=== PATIENT | female | born 1940 | race Hispanic/Latino ===

== ENCOUNTER 2019-03-09 07:33 | Day surgery (SDC) | payer MEDICARE ==
--- NOTE | 2019-03-09 07:48 | Anesthesia Day of Surgery ---
Anesthesia Day of Surgery - Day of Surgery Patient Examined: Yes Patient H&P Reviewed: Yes Patient is NPO: Yes
[2019-03-09] MEDS ORDERED: ONDANSETRON 4 MG/2 ML INJ IV PRN (07:51)
[2019-03-09] MEDS ORDERED: fentaNYL 100 MCG/2 ML INJ IV PRN (07:51)
--- NOTE | 2019-03-09 07:51 | Anesthesia Consultation ---
Anesthesia Consult and Med Hx Date of service: 03/09/19 - Airway Anesthetic Teeth Evaluation: Edentulous ROM Head & Neck: Adequate Mental/Hyoid Distance: Adequate Mallampati Class: Class III Intubation Access Assessment: Probably Good - Pre-Operative Health Status ASA Pre-Surgery Classification: ASA2 Proposed Anesthetic Plan: General - Pulmonary Hx Smoking: Yes (STOPPED 1997) Hx Sleep Apnea: No (ALEXIS PRE SCREEN LOW RISK.) - Cardiovascular System Hx Hypertension: Yes (X 10 YRS ) - Central Nervous System Hx Neuromuscular Disorder: Yes (Polyneuropathy-hereditary) - Endocrine Hx Thyroid Disease: Yes Hx Hypothyroidism: Yes (ON DAILY MEDS) - Other Systems Hx Cancer: No
[2019-03-09] MEDS ORDERED: LACTATED RINGERS 1,000 ML IV SCH (08:00)
[2019-03-09] MEDS ORDERED: ceFAZolin/Water 2 GM/20 ML 2 GM/20 ML SYRINGE IV NR (09:00)
[2019-03-09] MEDS ORDERED: fentaNYL 100 MCG/2 ML INJ ONE (10:08)
[2019-03-09] MEDS ORDERED: LIDOCAINE MPF (2%) 20 MG/1 ML VIAL 5 ML ONE ×2 (10:09→10:56)
[2019-03-09] MEDS ORDERED: PROPOFOL 200 MG/20 ML VIAL IV ONE (10:09)
[2019-03-09] MEDS ORDERED: IOHEXOL 300 MG/ML 50ML IV ONE (10:55)
[2019-03-09] MEDS ORDERED: WATER FOR IRRIG STERILE 2000 ML IR ONE (10:55)
[2019-03-09] MEDS ORDERED: dexAMETHasone 20 MG/5 ML VIAL ONE (10:56)
[2019-03-09] MEDS ORDERED: ONDANSETRON 4 MG/2 ML INJ ONE (10:56)
--- NOTE | 2019-03-09 11:26 | Post Operative Note ---
Date of procedure: 03/09/19 Pre-op diagnosis: hematuria Post-op diagnosis: same Findings: min erythema Procedure: cysto rpg biopsy Anesthesia: GETA Surgeon: RENU ELAM Estimated blood loss: minimal Pathology: list (bladder) Specimen disposition: to lab Condition: stable Disposition: PACU
--- NOTE | 2019-03-09 11:28 | Discharge Summary ---
Short Stay Discharge Plan Activity: other (inc fluids ) Weight Bearing Status: Full Weight Bearing Diet: low fat, low cholesterol, low salt Special Instructions: other (inc fluids ) Follow up with: ROSELYN ALFONSO MD [Primary Care Provider] - 7 Days RENU ELAM MD [Staff Physician] - 7 Days
[2019-03-09] MEDS ORDERED: PHENYLEPHRINE/NS 1,000 MCG/10 ML SYRINGE (OR USE) IV ONE (11:34)
--- NOTE | 2019-03-09 11:43 | Fluoroscopy Report ---
INTRAOPERATIVE FLUOROSCOPY: INDICATION / CLINICAL INFORMATION: HEMATURIA AND INCONTINENCE. TECHNIQUE: Intraoperative spot images were obtained during the procedure. FINDINGS: Intraoperative spot images show injection of contrast into both right and left collecting systems. No persistent filling defect is seen in either collecting system on the images obtained. Fluoroscopy Time: 42 seconds. Fluoroscopy Images: 5. Signer Name: Yehuda Santoyo MD Signed: 03/09/2019 11:38 AM Workstation Name: [id number]
--- NOTE | 2019-03-09 11:46 | Operative Report ---
PREOPERATIVE DIAGNOSES: Hematuria, possible bladder lesion. POSTOPERATIVE DIAGNOSES: Hematuria, possible bladder lesion. PROCEDURE: Cystoscopy, retrograde biopsy, fulguration. SURGEON: Dr. Vick. ANESTHESIA: General. FINDINGS: This is a woman who presents for cystoscopic evaluation of hematuria and all risks and implications discussed. DESCRIPTION OF PROCEDURE: The patient was brought to the operating room and placed on the operating table. Following induction of anesthesia, she was placed in lithotomy position, prepped and draped in usual sterile fashion. Cystourethroscopy showed slight erythema posterior wall. This was biopsied and fulgurated. Retrograde showed delicate collecting system in ureters with a small cystocele. It should be noted that upon entering the bladder neck, it looked like almost there was another orifice at the bladder neck. This looked like there was a little bridge or a little band in the bladder. There was no active bleeding. The patient tolerated the procedure well. No other lesions. No treatment was needed. The patient tolerated the procedure well and brought to recovery in stable condition. JOB# [id number] NUNO/LANDEN
[2019-03-09 13:59] VITALS: BP 146/72
--- NOTE | 2019-03-09 22:44 | Post Anesthesia Evaluation ---
- Post Anesthesia Evaluation Patient Participated: Yes Airway Patent: Yes Stable Respiratory Function: Yes Nausea/Vomiting: No Temp > 96.8F: Yes Pain Manageable: Yes Adequeate Hydration: Yes Anesthesia Complications: No Block Receding Appropriately: Not Applicable Patient on Ventilator: No
== END 2019-03-09 07:34 | disposition home or self-care (01) ==
LOC: OR 07:33
PROVIDERS: ATTEND Urology
DX: N30.91 Cystitis, unspecified with hematuria (principal); G62.9 Polyneuropathy, unspecified; E78.00 Pure hypercholesterolemia, unspecified; I10 Essential (primary) hypertension; M19.90 Unspecified osteoarthritis, unspecified site; E03.9 Hypothyroidism, unspecified; Z98.890 Other specified postprocedural states; Z87.440 Personal history of urinary (tract) infections; Z88.8 Allergy status to other drugs, medicaments and biological substances; Z88.5 Allergy status to narcotic agent; Z79.82 Long term (current) use of aspirin; Z79.899 Other long term (current) drug therapy; Z87.891 Personal history of nicotine dependence; Z98.49 Cataract extraction status, unspecified eye
CPT/HCPCS: 52204; 74420; 88305; A4217; C1758; J0690; J1100; J2370; J2405; J2704; J3010; J7120; Q9967

== ENCOUNTER 2021-10-01 18:10 | Inpatient (IN) | payer MEDICARE, MEDICAID ==
--- NOTE | 2021-10-01 18:39 | Consultation ---
History of Present Illness Consult date: 10/01/21 History of present illness: [facility] Consult Note # Demographics Consult Type: Acute Stroke Level 2 (4.5-24 hrs) Patient Location: Emergency Room First Name: Dorothy Last Name: Amber Date of : 1940 Age: 81 Gender: Female Facility: [facility] Time of Initial Page ( Time): 10/01/2021, 17:51 Time of Return Call ( Time): 10/01/2021, 17:57 # HPI Chief Complaint: dizziness numbness History: Patient woke up with right arm numbness & tingling. Last known well 1500 On home oxygen 2L Patient developed dizziness when looking over to the left. Last Known Normal: I have collected independent history specific to time last normal or last known well. We have collaborated with the provider and at this time, we have the most current timeline with the information that is available. 1500 Duration: constant hours Possible Thrombolytic candidate: not on warfarin or NOACs Associated Symptoms: dizziness no headache Quality: numbness pins and needles # Scores Time of exam and NIHSS ( Time): 10/01/2021, 18:18 Level of Consciousness 1a: [0] = Alert; keenly responsive LOC Questions 1b: [0] = Answers both questions correctly LOC Commands 1c: [0] = Performs both tasks correctly Best Gaze 2: [0] = Normal Visual 3: [0] = No visual loss Facial Palsy 4: [0] = Normal symmetrical movements Motor Arm Left 5a: [0] = No drift Motor Arm Right 5b: [0] = No drift Motor Leg Left 6a: [0] = No drift Motor Leg Right 6b: [0] = No drift Limb Ataxia 7: [1] = Present in one limb Sensory 8: [1] = Bqvy-qv-vafxjyun sensory loss Best Language 9: [0] = No aphasia Dysarthria 10: [0] = Normal Extinction and Inattention 11: [0] = No abnormality NIHSS Total: 2 Modified Woods Scale (mRS) pre-stroke: [0] = No Symptoms Modified Woods Scale total: 0 VAN Screening: Negative # Exam SBP: 128 DBP: 80 Mental Status: awake alert and oriented x 3 follows commands Language: normal speech Sensory: Right hand tingling Cerebellar: right finger nose ataxia # ROS Pulmonary: shortness of breath Cardiovascular: no chest pain # PMH-FH-SH Past Medical History: hyperlipidemia hypertension Medications: antihypertensive aspirin lipid lowering agent Allergies: Codeine, hydrocodone # Data Glucose: Pending Time Head CT personally read by me (Eastern Time): 10/01/2021, 18:[address]: no bleed preliminarily reviewed by me, please refer to radiology read for official reading # Assessment Impression: Numbness, dysmetria, ataxia, dizziness - concern for posterior circulation infarct # Plan Thrombolytic/Intervention: Possible IA candidate Thrombolytic Exclusion (< 3 hour window): family/ patient refusal Thrombolytic Exclusion (3-4.5 hour window): refusal Thrombolytic Exclusion: After discussing the risks & benefits, the patient elected not to pursue thrombolytic therapy. Possible IA Candidate: CTA pending Target Blood Pressure: SBP < 220 Labs: CBC comprehensive metabolic panel ESR hemoglobin A1c lipid panel troponin TSH urine drug screen ua Imaging: (urgency: STAT): CT Head without contrast CT Angiogram Head and CT Angiogram Neck AND call back with results if abnormal Imaging: (urgency: routine): MRI Brain without contrast Diagnostic Test: echo without bubble study Therapy/Evaluation: NPO until swallow evaluation PT/OT evaluation Medication: aspirin 81 mg PLUS clopidogrel (Plavix) 75 mg for 21 days, then monotherapy therafter start statin with goal of LDL < 70 Dual antiplatelet therapy given low NIHSS & concern for stroke, unless there is a large area of infarction in the posterior fossa/ cerebellum on MRI (i.e., increased risk for hemorrhagic transformation), then consider transitioning to clopidogrel (please call if there are any concerns about this on the MRI study) DVT Prophylaxis: SCD chemical DVT prophylaxis Other: permissive hypertension telemetry monitoring I have discussed my recommendations with the referring provider Additional Recommendations: Please be aware that changes in level of arousal, new-onset/ worsening headache, or new/ worsening focal neurological deficits warrant urgent repeat head CT for patients with potential posterior fossa pathology (ischemic stroke, hemorrhage, or mass). Disposition: admit # Logistics Telemedicine: Interactive 2 way audio and visual telecommunication technology was utilized during this visit Medications and Allergies Allergies Allergy/AdvReac Type Severity Reaction Status Date / Time codeine Allergy Nausea Verified 10/01/21 18:33 hydrocodone Allergy Nausea Verified 10/01/21 18:33 Home Medications Medication Instructions Recorded Confirmed Last Taken Type Alendronate Sodium 40 mg PO QWEEK 03/02/19 03/16/19 03/09/19 05:30 History Aspirin [Adult Aspirin] 81 mg PO DAILY 03/02/19 03/16/19 02/23/19 History AtorvaSTATin [Lipitor] 40 mg PO QHS 03/02/19 03/16/19 03/09/19 05:30 History Cholecalciferol (Vitamin D3) 2,000 unit PO QDAY 03/02/19 03/16/19 03/09/19 05:30 History [Vitamin D3 2,000 UNIT CAP] Glucosa [place] 2Kcl/Chondroitin Elmore 1 each PO DAILY 03/02/19 03/16/19 03/09/19 05:30 History [Glucosamine-Chondroitin Cap] Levothyroxine [Synthroid] 25 mcg PO QAM 03/02/19 03/16/19 03/09/19 05:30 History [place]-3/Dha/Epa/Fish Oil [Fish Oil 1 each PO DAILY 03/02/19 03/16/19 03/09/19 05:30 History 1,200 mg Softgel] Vitamin E Acetate [Vitamin E] 1,000 unit PO DAILY 03/02/19 03/16/19 03/09/19 05:30 History lisinopriL [Zestril TAB] 40 mg PO QDAY 03/02/19 03/16/19 03/09/19 05:30 History Benzonatate [Tessalon Perles] 100 mg PO Q8HR PRN #30 capsule 03/20/19 Unknown Rx Loratadine/Pseudoephedrine 1 each PO Q24HR #10 tablet 03/20/19 Unknown Rx [Claritin-D 24HR] levoFLOXacin [Levaquin TAB] 500 mg PO QDAY #5 tablet 03/20/19 Unknown Rx
--- NOTE | 2021-10-01 18:52 | Cat Scan Report ---
CT head/brain wo con INDICATION: r/o stroke; RUE tingling, weakness. TECHNIQUE: Routine CT head. All CT scans at this location are performed using CT dose reduction for A PAYTON by means of automated exposure control. COMPARISON: None. FINDINGS: Intracranial: Stover-white matter differentiation is maintained. No intracranial hemorrhage. No extra a xial collection. No hydrocephalus. No herniation. Remote lacunar infarctions versus mildly prominent perivascular spaces in the basal ganglia. Sinuses: Paranasal sinuses and mastoid air cells are essentially clear. Orbits: Globes are intact. Calvarium: No acute fracture. IMPRESSION: 1. No acute intracranial abnormality. Signer Name: Nasir Carr MD Signed: 10/01/2021 6:47 PM Workstation Name: [id number]
--- NOTE | 2021-10-01 18:53 | Cat Scan Report ---
CT angio neck HISTORY: RUE tingling/weakness, last known normal 3pm est COMPARISON: None. TECHNIQUE: Routine CTA of the neck is performed. 3-D/MIP reformats were postprocessed. Percentage st enosis is determined by direct quantitative measurements of diseased internal carotid artery diameter compared with normal distal internal carotid artery reference segments or by criteria similar to GAYATRI CET where applicable. All CT scans at this location are performed using CT dose reduction for ALARA b y means of automated exposure control. FINDINGS: Aortic arch: No significant abnormality. Cervical vertebral arteries: No occlusion or hemodynamically significant stenosis. Common Carotid arteries: Mild atherosclerosis in the carotid bulbs. No occlusion or hemodynamically s ignificant stenosis. Internal carotid arteries: Mild atherosclerotic stenosis in the proximal internal carotid arteries. N o occlusion or hemodynamically significant stenosis. Additional findings: Severe emphysematous changes seen in the lung apices.. IMPRESSION: 1. No occlusion or significant stenosis. 2. Emphysema. Signer Name: Nasir Carr MD Signed: 10/01/2021 6:49 PM Workstation Name: [id number]
--- NOTE | 2021-10-01 18:56 | Cat Scan Report ---
CT angio head HISTORY: RUE tingling/weakness, last known normal 3pm est COMPARISON: None. TECHNIQUE: CTA of the head is performed after IV contrast. 3-D/MIP reformats were postprocessed. Per centage stenosis is determined by direct quantitative measurements of diseased internal carotid arter y diameter compared with normal distal internal carotid artery reference segments or by criteria agnes lar to NASCET where applicable. All CT scans at this location are performed using CT dose reduction f or ALARA by means of automated exposure control. FINDINGS: CTA HEAD: Intracranial internal carotid arteries: No occlusion or significant stenosis. Anterior cerebral arteries: No occlusion or significant stenosis. Middle cerebral arteries: No occlusion or significant stenosis. Intracranial vertebral arteries: Moderate sclerosis of the V4 segments the vertebral arteries. No occ lusion or significant stenosis. Basilar artery: No occlusion or significant stenosis. Posterior cerebral arteries: No occlusion or significant stenosis. Right P-comm infundibulum. No aneurysm. Additional findings: None. IMPRESSION: 1. CTA HEAD: No occlusion or significant stenosis of the major intracranial vasculature. Signer Name: Nasir Carr MD Signed: 10/01/2021 6:51 PM Workstation Name: [id number]
--- NOTE | 2021-10-01 19:10 | Emergency Department Report ---
HPI - General Chief Complaint: Neuro Symptoms/Deficit PUI?: No Time Seen by Provider: 10/01/21 18:12 - HPI HPI: 81-year-old female brought in by EMS for stroke notification. Last known normal time was 3 PM. Patient states she went to sleep @ 3pm and when she woke up she felt tingling and numbness in her right arm. Patient states that she broke her elbow 2 years ago and since then she has been having intermittent issues where the elbow pops and she has problems with reaching for things. Patient reports that when she woke up her fingers were tingling but she did not fall asleep on her arm. She denies any difficulty with motor strength. She denies any headaches dizziness nausea or vomiting vision loss visual changes or weakness in her arm or legs. No prior history of similar symptoms. Pain 0/10. Pt also c/o mild cough x several days. She denies any difficulty breathing or worsening shortness of breath,when compared to her baseline. ED Past Medical Hx - Past Medical History Hx Hypertension: Yes (X 10 YRS ) Hx Arthritis: Yes Hx COPD: Yes Hx HIV: No - Surgical History Additional Surgical History: leg surgery - Social History Smoking Status: Former Smoker - Medications Home Medications: Home Medications Medication Instructions Recorded Confirmed Last Taken Type Alendronate Sodium 40 mg PO QWEEK 03/02/19 03/16/19 03/09/19 05:30 History Aspirin [Adult Aspirin] 81 mg PO DAILY 03/02/19 03/16/19 02/23/19 History AtorvaSTATin [Lipitor] 40 mg PO QHS 03/02/19 03/16/19 03/09/19 05:30 History Cholecalciferol (Vitamin D3) 2,000 unit PO QDAY 03/02/19 03/16/19 03/09/19 05:30 History [Vitamin D3 2,000 UNIT CAP] Glucosa Elmore 2Kcl/Chondroitin Elmore 1 each PO DAILY 03/02/19 03/16/19 03/09/19 05:30 History [Glucosamine-Chondroitin Cap] Levothyroxine [Synthroid] 25 mcg PO QAM 03/02/19 03/16/19 03/09/19 05:30 History [place]-3/Dha/Epa/Fish Oil [Fish Oil 1 each PO DAILY 03/02/19 03/16/19 03/09/19 05:30 History 1,200 mg Softgel] Vitamin E Acetate [Vitamin E] 1,000 unit PO DAILY 03/02/19 03/16/19 03/09/19 05:30 History lisinopriL [Zestril TAB] 40 mg PO QDAY 03/02/19 03/16/19 03/09/19 05:30 History Benzonatate [Tessalon Perles] 100 mg PO Q8HR PRN #30 capsule 03/20/19 Unknown Rx Loratadine/Pseudoephedrine 1 each PO Q24HR #10 tablet 03/20/19 Unknown Rx [Claritin-D 24HR] levoFLOXacin [Levaquin TAB] 500 mg PO QDAY #5 tablet 03/20/19 Unknown Rx ED Review of Systems ROS: Stated complaint: RIGHT ARM WEAKNESS Other details as noted in HPI Comment: All other systems reviewed and negative Constitutional: no symptoms reported. denies: see HPI, chills, diaphoresis, fever, malaise, weakness Eyes: denies: eye pain, eye discharge, vision change ENT: denies: ear pain, throat pain, dental pain, hearing loss, epistaxis Respiratory: see HPI, cough, shortness of breath Cardiovascular: denies: chest pain, palpitations, dyspnea on exertion, orthopnea, edema, syncope, paroxysmal nocturnal dyspnea Gastrointestinal: denies: abdominal pain, nausea, vomiting, diarrhea, constipation, hematemesis, melena Genitourinary: as per HPI. denies: urgency, dysuria, frequency, hematuria, discharge, abnormal menses, dyspareunia, other Musculoskeletal: denies: back pain, joint swelling, arthralgia, myalgia Skin: denies: rash, lesions, change in color, change in hair/nails, pruritus Neurological: numbness, paresthesias, other (dizziness). denies: headache, w eakness, confusion, abnormal gait, vertigo Psychiatric: denies: anxiety, depression, auditory hallucinations, visual hallucinations, homicidal thoughts Hematological/Lymphatic: denies: easy bleeding, easy bruising, swollen glands Physical Exam - Physical Exam General: Gen: pt is well appearing, mildly dyspneic, currently wearing supplemental oxygen via nasal cannula, no drooling no stridor HEENT: Normocephalic atraumatic pupils equally round and reactive to light extraocular muscles intact sclera anicteric Neck: Full range of motion, no midline spinal tenderness palpation, no JVD, no carotid bruits, no nuchal rigidity CVS: S1-S2 regular rate and rhythm with no gallops rubs or murmurs, chest wall nontender Pulmonary: Clear to auscultation bilaterally, no wheezes rales or rhonchi Abdomen: Soft nondistended nontender no guarding or rebound tenderness, no palpable deformities or step-offs, normal active bowel sounds, no hepatosplenomegaly, no pulsatile masses : Deferred Extremities: No cyanosis no clubbing no edema, intact distal peripheral pulses, Integumentary: Skin normal, no petechia no purpura no abscess no lacerations no evidence of trauma no evidence of infection Neuro: Patient is awake alert and oriented to person place time situation, mentating well, cranial nerves II through XII intact, no focal neurodeficits, sensation grossly tact, decreased sensation to right upper extremity, NIH score is 1 Psych: Calm cooperative, mood affect normal ED Course - Reevaluation(s) Reevaluation #2: 10/01/21 19:10 6:30 PM: Call received from stroke telemetry neurologist, Dr. Gordon. Per his verbal report he had spoken to the patient in the CT scanner and expressed concern about possible posterior circulation stroke, with NIH score of 2. He states he advised the patient to receive tPA but the patient refused., citing her concer of developing an intracranial hemorrrhage as a result of receiving tpa. He is advising admission to the hospital service, but to provide the patient with aspirin, and that the patient undergo an MRI of her brain tomorrow. Reevaluation #3: 10/01/21 18:57: Patient has just returned from CAT scan. She is awake alert and oriented to person place and time situation and is mentating well. She has decision-making capacity per my clinical assessment. NIH score is 1. I had an extensive discussion with the patient and her daughter at her bedside concerning the patient's discussion with Dr. Butts. The patient affirms that she understands the risk of receiving tPA and at this time is declining to receive it. I again encouraged the patient to receive tPA as recommended by the stroke neurologist and again reviewed with her the risk and benefits. However patient states "I do not want to have any risk of a possible brain bleed." All questions answered by me at the patient's bedside patient repeatedly declines to be given tPA and therefore this will not be administered. 19:10 Patient is comfortable and well-appearing. Denies any worsening symptoms. NIH score remains 1 per my assessment. We will continue to monitor 10/01/21 19:22 Reevaluation #4: 10/01/21 19:34: Informed by pt and her daughter that the pt now states she wants TPA. I emergently asked the crude unit operator, Jennifer, to telephone Dr. Butts so that this can be discussed and to determine if the patient is still eligible to receive tPA Reevaluation #5: 10/01/21 19:47: Dr. Butts return call received. I informed him that several minutes ago, the patient states she would like to receive tPA. However expressed concern that the patient now was out of the window for tPA and I am requesting that he speak with the patient and her daughter concerning her current and eligibility to receive this. He subsequently agreed and verbally informed the patient and her daughter that the patient is out of the therapeutic window for receiving tPA therefore it is not recommended to be given at this time. Patient and daughter verbalized understanding of this. ED Medical Decision Making - Lab Data Result diagrams: 10/01/21 19:02 10/01/21 19:02 - EKG Data -: EKG Interpreted by Me EKG shows normal: sinus rhythm Rate: normal - EKG Data When compared to previous EKG there are: other (Poor baseline EKG, repeat EKG needed) 10/01/21 20:24 Repeat EKG ordered and pending at the time of this dictation as original EKG cannot be interpreted by me secondary to extremely poor baseline artifact - Radiology Data Radiology results: report reviewed Critical Care Time: No Critical care attestation.: If time is entered above; I have spent that time in minutes in the direct care of this critically ill patient, excluding procedure time. ED Disposition Clinical Impression: Paresthesias in right hand Disposition: ADMITTED INPATIENT Is pt being admited?: Yes Does the pt Need Aspirin: Yes Condition: Stable Referrals: VIRGINIA RYAN MD [Primary Care Provider] - 3-5 Days
[2021-10-01 19:13] LABS: Basophils % (Auto) 0.2 % (0.0-1.8); Eosinophils % (Auto) 0.4 % (0.0-4.3); Hematocrit 30.6 % (30.3-42.9); Hemoglobin 10.4 gm/dl (10.1-14.3); Lymphocytes # (Auto) 2.6 K/mm3 (1.2-5.4); Lymphocytes % (Auto) 50.6 % (13.4-35.0); Mean Corpuscular HGB Conc 34 % (30-34); Mean Corpuscular Volume 116 fl (79-97); Monocytes # (Auto) 0.2 K/mm3 (0.0-0.8); Monocytes % (Auto) 3.3 % (0.0-7.3); Platelet Count 161 K/mm3 (140-440); Red Blood Count 2.64 M/mm3 (3.65-5.03); Red Cell Distribution Width 15.3 % (13.2-15.2)
--- NOTE | 2021-10-01 19:22 | XRay Report ---
CHEST 1 VIEW 10/01/2021 6:41 PM INDICATION / CLINICAL INFORMATION: weakness. COMPARISON: 03/19/2019 FINDINGS: SUPPORT DEVICES: None. HEART / MEDIASTINUM: Unchanged LUNGS / PLEURA: There is focal parenchymal opacity in the right midlung zone adjacent to the hilum co uld represent focal atelectasis or pneumonia. No pneumothorax. ADDITIONAL FINDINGS: No significant additional findings. IMPRESSION: 1. Focal parenchymal opacity adjacent to the right hilum could represent atelectasis or evolving pneu monia. Short-term follow-up radiographs are recommended to ensure clearing. Signer Name: Yehuda Santoyo MD Signed: 10/01/2021 7:18 PM Workstation Name: [id number]
[2021-10-01 19:40] LABS: Alanine Aminotransferase 14 units/L (7-56); Albumin 4.3 g/dL (3.9-5); BUN/Creatinine Ratio 18; Blood Urea Nitrogen 21 mg/dL (7-17); Calcium 10.7 mg/dL (8.4-10.2); Hemolysis Index 22
[2021-10-01] MEDS ORDERED: CLOPIDOGREL 75 MG TAB PO ONE (20:08)
[2021-10-01] MEDS ORDERED: ASPIRIN 81 MG TAB CHEW PO ONE (20:13)
[2021-10-01] MEDS ORDERED: cefTRIAXone/NS 1 GM/50 ML 1 GM/50 ML BAG IV ONE (20:21)
[2021-10-01] MEDS ORDERED: AZITHROMYCIN/NS 500 MG/250 ML 500 MG/250 ML BAG IV ONE (20:22)
[2021-10-01] MEDS ORDERED: ALBUTEROL 2.5 MG/3 ML NEBU IH PRN (21:53)
[2021-10-01] MEDS ORDERED: MORPHINE 2 MG/1 ML INJ IV PRN (21:53)
[2021-10-01] MEDS ORDERED: MORPHINE 4 MG/1 ML INJ IV PRN (21:53)
[2021-10-01] MEDS ORDERED: ONDANSETRON 4 MG/2 ML INJ IV PRN (21:53)
[2021-10-01] MEDS ORDERED: ACETAMINOPHEN 325 MG TAB PO PRN (21:53)
[2021-10-01] MEDS ORDERED: BENZONATATE 100 MG CAP PO PRN (21:57)
[2021-10-01] MEDS ORDERED: FAMOTIDINE 20 MG/2 ML INJ IV SCH (22:00)
--- NOTE | 2021-10-01 22:04 | History and Physical Report ---
History of Present Illness Date of examination: 10/01/21 Date of admission: 10/01/21 Chief complaint: Tingling and numbness of the right arm History of present illness: 81-year-old female with history of hypertension, arthritis, COPD was brought to the hospital because of tingling numbness of the right arm since 3 PM. Patient states she went to sleep @ 3pm and when she woke up she felt tingling and numbness in her right arm. Patient states that she broke her elbow 2 years ago and since then she has been having intermittent issues where the elbow pops and she has problems with reaching for things. Patient reports that when she woke up her fingers were tingling but she did not fall asleep on her arm. She denies any difficulty with motor strength. She denies any headaches dizziness nausea or vomiting vision loss visual changes or weakness in her arm or legs. No prior history of similar symptoms. Pain 0/10. Pt also c/o mild cough x several days. She denies any difficulty breathing or worsening shortness of breath,when compared to her baseline. In the emergency room initial CT scan of the head shows no acute intracranial abnormality. Neck CTA and head CTA shows no occlusion or significant stenosis. But chest x-ray shows pneumonia Case discussed with stroke telemetry neurologist, Dr. Gordon. Per his verbal report he had spoken to the patient in the CT scanner and expressed concern about possible posterior circulation stroke, with NIH score of 2. He states he advised the patient to receive tPA but the patient refused., citing her concer of developing an intracranial hemorrrhage as a result of receiving tpa. He is advising admission to the hospital service, but to provide the patient with aspirin, and that the patient undergo an MRI of her brain tomorrow. 10/01/21 19:34: Informed by pt and her daughter that the pt now states she wants TPA. I emergently asked the community action worker, Jennifer, to telephone Dr. Butts so that this can be discussed and to determine if the patient is still eligible to receive tPA Reevaluation #5: 10/01/21 19:47: Dr. Butts return call received. I informed him that several minutes ago, the patient states she would like to receive tPA. However expressed concern that the patient now was out of the window for tPA and I am requesting that he speak with the patient and her daughter concerning her current and eligibility to receive this. He subsequently agreed and verbally informed the patient and her daughter that the patient is out of the therapeutic window for receiving tPA therefore it is not recommended to be given at this time. Patient and daughter verbalized understanding of this. Past History Past Medical History: arthritis, COPD, hypertension Past Surgical History: Other (Leg surgery) Social history: other (Former smoker) Family history: hypertension Medications and Allergies Allergies Allergy/AdvReac Type Severity Reaction Status Date / Time codeine Allergy Nausea Verified 10/01/21 18:33 hydrocodone Allergy Nausea Verified 10/01/21 18:33 Home Medications Medication Instructions Recorded Confirmed Last Taken Type Alendronate Sodium 40 mg PO QWEEK 03/02/19 03/16/19 03/09/19 05:30 History Aspirin [Adult Aspirin] 81 mg PO DAILY 03/02/19 03/16/19 02/23/19 History AtorvaSTATin [Lipitor] 40 mg PO QHS 03/02/19 03/16/19 03/09/19 05:30 History Cholecalciferol (Vitamin D3) 2,000 unit PO QDAY 03/02/19 03/16/19 03/09/19 05:30 History [Vitamin D3 2,000 UNIT CAP] Glucosa [place] 2Kcl/Chondroitin [place]more 1 each PO DAILY 03/02/19 03/16/19 03/09/19 05:30 History [Glucosamine-Chondroitin Cap] Levothyroxine [Synthroid] 25 mcg PO QAM 03/02/19 03/16/19 03/09/19 05:30 History [place]-3/Dha/Epa/Fish Oil [Fish Oil 1 each PO DAILY 03/02/19 03/16/19 03/09/19 05:30 History 1,200 mg Softgel] Vitamin E Acetate [Vitamin E] 1,000 unit PO DAILY 03/02/19 03/16/19 03/09/19 05:30 History lisinopriL [Zestril TAB] 40 mg PO QDAY 03/02/19 03/16/19 03/09/19 05:30 History Benzonatate [Tessalon Perles] 100 mg PO Q8HR PRN #30 capsule 03/20/19 Unknown Rx Loratadine/Pseudoephedrine 1 each PO Q24HR #10 tablet 03/20/19 Unknown Rx [Claritin-D 24HR] levoFLOXacin [Levaquin TAB] 500 mg PO QDAY #5 tablet 03/20/19 Unknown Rx Review of Systems All systems: negative Constitutional: weakness, other (Tingling numbness of the right arm) Respiratory: cough, shortness of breath Exam - Constitutional Vitals: Temp Pulse Resp BP Pulse Ox 97.9 F 91 H 22 146/83 97 10/01/21 20:00 10/01/21 20:00 10/01/21 20:00 10/01/21 20:00 10/01/21 20:00 General appearance: Present: no acute distress, well-nourished - EENT Eyes: Present: PERRL ENT: hearing intact, clear oral mucosa - Neck Neck: Present: supple, normal ROM - Respiratory Respiratory effort: normal Respiratory: bilateral: CTA - Cardiovascular Heart Sounds: Present: S1 & S2. Absent: rub, click - Extremities Extremities: pulses symmetrical, No edema Peripheral Pulses: within normal limits - Abdominal General gastrointestinal: Present: soft, non-tender, non-distended, normal bowel sounds Female genitourinary: Present: normal - Integumentary Integumentary: Present: clear, warm, dry - Musculoskeletal Musculoskeletal: gait normal, strength equal bilaterally - Psychiatric Psychiatric: appropriate mood/affect, intact judgment & insight - Neurologic Neurologic: CNII-XII intact, moves all extremities, other (Neuro: Patient is awake alert and oriented to person place time situation, mentating well, cranial nerves II through XII intact, no focal neurodeficits, sensation grossly tact, decreased sensation to right upper extremity, NIH score is 1) HEART Score - HEART Score Troponin: Troponin T < 0.010 ng/mL (0.00-0.029) 10/01/21 19:02 Results - Labs CBC & Chem 7: 10/01/21 19:02 10/01/21 19:02 Labs: Laboratory Last Values WBC 5.2 K/mm3 (4.5-11.0) 10/01/21 19:02 RBC 2.64 M/mm3 (3.65-5.03) L 10/01/21 19:02 Hgb 10.4 gm/dl (10.1-14.3) 10/01/21 19:02 Hct 30.6 % (30.3-42.9) 10/01/21 19:02 MCV 116 fl (79-97) H 10/01/21 19:02 MCH 39 pg (28-32) H 10/01/21 19:02 MCHC 34 % (30-34) 10/01/21 19:02 RDW 15.3 % (13.2-15.2) H 10/01/21 19:02 Plt Count 161 K/mm3 (140-440) 10/01/21 19:02 Lymph % (Auto) 50.6 % (13.4-35.0) H 10/01/21 19:02 [place] % (Auto) 3.3 % (0.0-7.3) 10/01/21 19:02 Eos % (Auto) 0.4 % (0.0-4.3) 10/01/21 19:02 Baso % (Auto) 0.2 % (0.0-1.8) 10/01/21 19:02 Lymph # (Auto) 2.6 K/mm3 (1.2-5.4) 10/01/21 19:02 [place] # (Auto) 0.2 K/mm3 (0.0-0.8) 10/01/21 19:02 Eos # (Auto) 0.0 K/mm3 (0.0-0.4) 10/01/21 19:02 Baso # (Auto) 0.0 K/mm3 (0.0-0.1) 10/01/21 19:02 Seg Neutrophils % 45.5 % (40.0-70.0) 10/01/21 19:02 Seg Neutrophils # 2.4 K/mm3 (1.8-7.7) 10/01/21 19:02 Sodium 131 mmol/L (137-145) L 10/01/21 19:02 Potassium 4.8 mmol/L (3.6-5.0) 10/01/21 19:02 Chloride 98.5 mmol/L (98-107) 10/01/21 19:02 Carbon Dioxide 19 mmol/L (22-30) L 10/01/21 19:02 Anion Gap 18 mmol/L 10/01/21 19:02 BUN 21 mg/dL (7-17) H 10/01/21 19:02 Creatinine 1.2 mg/dL (0.6-1.2) 10/01/21 19:02 Estimated GFR 43 ml/min 10/01/21 19:02 BUN/Creatinine Ratio 18 % 10/01/21 19:02 Glucose 80 mg/dL (65-100) 10/01/21 19:02 POC Glucose 80 mg/dL (70-105) 10/01/21 18:25 Calcium 10.7 mg/dL (8.4-10.2) H 10/01/21 19:02 Total Bilirubin 1.70 mg/dL (0.1-1.2) H 10/01/21 19:02 AST 31 units/L (5-40) 10/01/21 19:02 ALT 14 units/L (7-56) 10/01/21 19:02 Alkaline Phosphatase 78 units/L (35-129) 10/01/21 19:02 Troponin T < 0.010 ng/mL (0.00-0.029) 10/01/21 19:02 Total Protein 6.3 g/dL (6.3-8.2) 10/01/21 19:02 Albumin 4.3 g/dL (3.9-5) 10/01/21 19:02 Albumin/Globulin Ratio 2.2 % 10/01/21 19:02 - Imaging and Cardiology Chest x-ray: report reviewed CT Scan - head: report reviewed Assessment and Plan VTE prophylaxis?: Chemical Plan of care discussed with patient/family: Yes - Patient Problems (1) Paresthesias in right hand Current Visit: Yes Status: Acute Plan to address problem: Admit the patient to the medical telemetry. NPO. Aspirin 81 mg p.o. daily. Plavix 75 mg p.o. daily. Lipitor 40 mg p.o. daily MRI of the brain MRI of the brain and neck with and without contrast. PT OT speech evaluation. Consult neurology in the morning as there is no coverage tonight (2) Bilateral pneumonia Current Visit: No Status: Acute Plan to address problem: Oxygen by nasal cannula 3 L/min. DuoNeb via nebulizer every 4 hours. Albuterol via nebulizer every 4 hours as needed. Rocephin 2 g IV daily. Zithromax to 50 mg p.o. daily. Blood cultures sputum culture. Recheck CBC BMP in the morning (3) Hypertension Current Visit: Yes Status: Acute Plan to address problem: Labetalol 5 mg IV every 1 hours as needed. We continue the home medication (4) COPD (chronic obstructive pulmonary disease) Current Visit: Yes Status: Acute Plan to address problem: Oxygen by nasal cannula 3 L/min. DuoNeb via nebulizer every 4 hours. Albuterol via nebulizer every 4 hours as needed. (5) Hypoxia Current Visit: No Status: Acute Plan to address problem: Oxygen by nasal cannula 3 L/min. DuoNeb via nebulizer every 4 hours. Albuterol via nebulizer every 4 hours as needed. (6) DVT prophylaxis Current Visit: Yes Status: Acute Plan to address problem: Heparin 5000 units subcu every 12 hours for DVT prophylaxis. Pepcid 20 mg IV every 12 hours for GI prophylaxis. Patient is a full code
[2021-10-02] MEDS: HEPARIN 5,000 UNIT/1 ML VIAL SUB-Q SCH ×3 (00:45→21:23)
[2021-10-02 06:41] LABS: Basophils % (Auto) 0.1 % (0.0-1.8); Eosinophils # (Auto) 0.1 K/mm3 (0.0-0.4); Eosinophils % (Auto) 1.1 % (0.0-4.3); Hematocrit 26.6 % (30.3-42.9); Hemoglobin 9.2 gm/dl (10.1-14.3); Lymphocytes # (Auto) 2.5 K/mm3 (1.2-5.4); Lymphocytes % (Auto) 48.2 % (13.4-35.0); Mean Corpuscular HGB Conc 35 % (30-34); Mean Corpuscular Volume 115 fl (79-97); Monocytes # (Auto) 0.3 K/mm3 (0.0-0.8); Monocytes % (Auto) 4.9 % (0.0-7.3); Platelet Count 155 K/mm3 (140-440); Red Blood Count 2.32 M/mm3 (3.65-5.03); Red Cell Distribution Width 15.4 % (13.2-15.2)
[2021-10-02 07:03] LABS: Calcium 10.2 mg/dL (8.4-10.2); Chol/HDL Ratio 2.35 %
[2021-10-02] MEDS: IPRATROPIUM/ALBUTEROL SULFATE 3 ML AMPUL.NEB IH SCH ×2 (08:27→08:36)
[2021-10-02] MEDS ORDERED: cefTRIAXone/NS 2 GM/100 ML 2 GM/100 ML BAG IV SCH (10:00)
[2021-10-02] MEDS ORDERED: AZITHROMYCIN 250 MG TAB PO SCH (10:00)
[2021-10-02] MEDS: LEVOTHYROXINE 25 MCG TAB PO SCH (10:41)
[2021-10-02] MEDS: FAMOTIDINE 20 MG/2 ML INJ IV SCH ×3 (10:41→21:22)
[2021-10-02] MEDS: ASPIRIN EC 81 MG TAB PO SCH (11:09)
[2021-10-02] MEDS: CLOPIDOGREL 75 MG TAB PO SCH (11:09)
[2021-10-02] MEDS: D5W/0.45% NACL 1,000 ML IV SCH (11:10)
[2021-10-02] MEDS: LISINOPRIL 40 MG TAB PO SCH (11:49)
--- NOTE | 2021-10-02 16:30 | Consultation ---
History of Present Illness Consult date: 10/02/21 History of present illness: 81-year-old female with history of hypertension, arthritis, COPD was brought to the hospital because of tingling numbness of the right arm since 3 PM. Patient states she went to sleep @ 3pm and when she woke up she felt tingling and numbness in her right arm. Patient states that she broke her elbow 2 years ago and since then she has been having intermittent issues where the elbow pops and she has problems with reaching for things. Patient reports that when she woke up her fingers were tingling but she did not fall asleep on her arm. She denies any difficulty with motor strength. She denies any headaches dizziness nausea or vomiting vision loss visual changes or weakness in her arm or legs. No prior history of similar symptoms. Pain 0/10. Pt also c/o mild cough x several days. She denies any difficulty breathing or worsening shortness of breath,when compared to her baseline. In the emergency room initial CT scan of the head shows no acute intracranial abnormality. Neck CTA and head CTA shows no occlusion or significant stenosis. But chest x-ray shows pneumonia Case discussed with stroke telemetry neurologist, Dr. Gordon. Per his verbal report he had spoken to the patient in the CT scanner and expressed concern a bout possible posterior circulation stroke, with NIH score of 2. He states he advised the patient to receive tPA but the patient refused., citing her concer of developing an intracranial hemorrrhage as a result of receiving tpa. He is advising admission to the hospital service, but to provide the patient with aspirin, and that the patient undergo an MRI of her brain tomorrow. The patient is now improving , right arm improving , no issues with right leg. Past History Past Medical History: arthritis, COPD, hypertension Past Surgical History: Other (Leg surgery) Social history: other (Former smoker) Family history: hypertension Medications and Allergies Allergies Allergy/AdvReac Type Severity Reaction Status Date / Time codeine Allergy Nausea Verified 10/01/21 18:33 hydrocodone Allergy Nausea Verified 10/01/21 18:33 Home Medications Medication Instructions Recorded Confirmed Last Taken Type Alendronate Sodium 40 mg PO QWEEK 03/02/19 10/02/21 03/09/19 05:30 History Aspirin [Adult Aspirin] 81 mg PO DAILY 03/02/19 10/02/21 02/23/19 History AtorvaSTATin [Lipitor] 40 mg PO QHS 03/02/19 10/02/21 03/09/19 05:30 History Cholecalciferol (Vitamin D3) 2,000 unit PO QDAY 03/02/19 10/02/21 03/09/19 05:30 History [Vitamin D3 2,000 UNIT CAP] Glucosa [place] 2Kcl/Chondroitin [place]more 1 each PO DAILY 03/02/19 10/02/21 03/09/19 05:30 History [Glucosamine-Chondroitin Cap] Levothyroxine [Synthroid] 25 mcg PO QAM 03/02/19 10/02/21 03/09/19 05:30 History [place]-3/Dha/Epa/Fish Oil [Fish Oil 1 each PO DAILY 03/02/19 10/02/21 03/09/19 05:30 History 1,200 mg Softgel] Vitamin E Acetate [Vitamin E] 1,000 unit PO DAILY 03/02/19 10/02/21 03/09/19 05:30 History lisinopriL [Zestril TAB] 40 mg PO QDAY 03/02/19 10/02/21 03/09/19 05:30 History Benzonatate [Tessalon Perles] 100 mg PO Q8HR PRN #30 capsule 03/20/19 10/02/21 Unknown Rx Loratadine/Pseudoephedrine 1 each PO Q24HR #10 tablet 03/20/19 10/02/21 Unknown Rx [Claritin-D 24HR] levoFLOXacin [Levaquin TAB] 500 mg PO QDAY #5 tablet 03/20/19 10/02/21 Unknown Rx Active Meds: Active Medications Acetaminophen (Acetaminophen 325 Mg Tab) 650 mg PO Q4H PRN PRN Reason: Pain MILD(1-3)/Fever >100.5/WALTER Albuterol (Albuterol 2.5 Mg/3 Ml Nebu) 2.5 mg IH Q3HRT PRN PRN Reason: Shortness Of Breath Aspirin (Aspirin Ec 81 Mg Tab) 81 mg PO DAILY [facility] Last Admin: 10/02/21 11:09 Dose: 81 mg Atorvastatin Calcium (Atorvastatin 40 Mg Tab) 40 mg PO QHS [facility] Last Admin: 10/02/21 00:45 Dose: 40 mg Azithromycin (Azithromycin 250 Mg Tab) 500 mg PO QDAY [facility]; Protocol Last Admin: 10/02/21 11:09 Dose: 500 mg Benzonatate (Benzonatate 100 Mg Cap) 100 mg PO Q8HR PRN PRN Reason: Cough Clopidogrel Bisulfate (Clopidogrel 75 Mg Tab) 75 mg PO QDAY [facility] Last Admin: 10/02/21 11:09 Dose: 75 mg Famotidine (Famotidine 20 Mg/2 Ml Inj) 10 mg IV BID [facility] Last Admin: 10/02/21 11:09 Dose: 10 mg Heparin Sodium (Porcine) (Heparin 5,000 Unit/1 Ml Vial) 5,000 unit SUB-Q Q12HR [facility] Last Admin: 10/02/21 11:09 Dose: 5,000 unit Dextrose/Sodium Chloride (D5/0.45ns) 1,000 mls @ 100 mls/hr IV DIRECT [facility] Last Admin: 10/02/21 11:10 Dose: 100 mls/hr Ceftriaxone Sodium (Rocephin/Ns 2 Gm/100 Ml) 2 gm in 100 mls @ 200 mls/hr IV Q24H [facility]; Protocol Last Admin: 10/02/21 11:10 Dose: 200 mls/hr Labetalol HCl (Labetalol 20 Mg/4 Ml Inj) 10 mg IV Q5MIN PRN PRN Reason: to maintain SBP < 180 Levothyroxine Sodium (Levothyroxine 25 Mcg Tab) 25 mcg PO QAM@0600 [facility] Last Admin: 10/02/21 10:41 Dose: Not Given Lisinopril (Lisinopril 40 Mg Tab) 40 mg PO QDAY [facility] Last Admin: 10/02/21 11:49 Dose: 40 mg Morphine Sulfate (Morphine 2 Mg/1 Ml Inj) 2 mg IV Q4H PRN PRN Reason: Pain, Moderate (4-6) Morphine Sulfate (Morphine 4 Mg/1 Ml Inj) 4 mg IV Q4H PRN PRN Reason: Pain , Severe (7-10) Ondansetron HCl (Ondansetron 4 Mg/2 Ml Inj) 4 mg IV Q8H PRN PRN Reason: Nausea And Vomiting Sodium Chloride (Sodium Chloride 0.9% 10 Ml Flush Syringe) 10 ml IV BID [facility] Last Admin: 10/02/21 11:37 Dose: 10 ml Sodium Chloride (Sodium Chloride 0.9% 10 Ml Flush Syringe) 10 ml IV PRN PRN PRN Reason: LINE FLUSH Physical Examination - Vital Signs Vital Signs: Vital Signs Resp Pulse Ox 18 100 10/01/21 18:32 10/01/21 18:32 - Physical Exam Narrative exam: The patient is alert , mild right arm weakness otherwise rest is non focal . Results - Laboratory Findings CBC and BMP: 10/02/21 06:26 10/02/21 06:26 Abnormal Lab Findings: Abnormal Labs 10/01/21 10/01/21 10/02/21 19:02 19:02 06:26 RBC 2.64 L 2.32 L Hgb 9.2 L Hct 26.6 L MCV 116 H 115 H MCH 39 H 40 H MCHC 35 H RDW 15.3 H 15.4 H Lymph % (Auto) 50.6 H 48.2 H Sodium 131 L Carbon Dioxide 19 L BUN 21 H Calcium 10.7 H Total Bilirubin 1.70 H 10/02/21 06:26 RBC Hgb Hct MCV MCH MCHC RDW Lymph % (Auto) Sodium Carbon Dioxide BUN 18 H Calcium Total Bilirubin Assessment and Plan 1. CVA - possibly Small Vessel Ischemic CVA 2. Awaits MRI Brain results . 3. CTA negative 4. Agree with current medications. 5. Needs OT and PT Dr. Wilkes
[2021-10-03] MEDS: D5W/0.45% NACL 1,000 ML IV SCH (02:14)
--- NOTE | 2021-10-03 05:21 | Progress Note ---
Assessment and Plan Assessment and plan: #Possible acute ischemic CVA #paresthesia of right upper extremity Patient presented outside of the therapeutic window to receive tPA. Continue aspirin 325 mg daily, atorvastatin 40 mg daily Pending hemoglobin A1c and lipid profile and TTE to evaluate cardiac function and possible PFO. Pending MRI brain. Neurology consulted; appreciate recs Physical therapy and Occupational Therapy consulted; pending recs. Continue to monitor #Bilateral pneumoniaruled out Chest x-ray not fully consistent with right middle lobe pneumonia. Unremarkable procalcitonin. Discontinuing Rocephin + azithromycin. Can be restarted if patient develops leukocytosis, coughing, fever, or began to become more hemodynamically unstable. #Chronic hypoxic respiratory failure Currently stable and at baseline 2 L nasal cannula. Continue to monitor. #Hypertension Continue home lisinopril 40 mg daily #Hypothyroidism Continue home levothyroxine 25 mcg daily #Advanced care planning -Disease education conducted, care plan discussed, diagnoses discussed, prognosis discussed, and patient acknowledges understanding with care plan -Time: +30 min Disposition Plan: Continue medical management Total Time Spent with Patient (Minutes): 45 minutes History Interval history: No acute events overnight. Hospitalist Physical - Constitutional Vitals: Temp Pulse Resp BP Pulse Ox 98.1 F 73 18 119/61 98 10/03/21 03:42 10/03/21 03:42 10/03/21 03:42 10/03/21 03:42 10/03/21 03:42 General appearance: Present: no acute distress, well-nourished - EENT Eyes: Present: PERRL, EOM intact ENT: hearing intact, clear oral mucosa, dentition normal - Neck Neck: Present: supple, normal ROM - Respiratory Respiratory effort: normal Respiratory: bilateral: diminished (On 2 L nasal cannula (baseline)) - Cardiovascular Rhythm: regular Heart Sounds: Present: S1 & S2 - Extremities Extremities: no ischemia, pulses intact, pulses symmetrical, No edema, normal temperature, normal color Peripheral Pulses: within normal limits - Abdominal General gastrointestinal: soft, non-tender, non-distended, normal bowel sounds - Integumentary Integumentary: Present: clear, warm, dry - Psychiatric Psychiatric: appropriate mood/affect, intact judgment & insight, memory intact, cooperative - Neurologic Neurologic: CNII-XII intact, other (Paresthesia of right upper extremity) - Allied Health Allied health notes reviewed: nursing HEART Score - HEART Score Troponin: Troponin T < 0.010 ng/mL (0.00-0.029) 10/01/21 19:02 Results - Labs CBC & Chem 7: 10/02/21 06:26 10/02/21 06:26 Labs: Laboratory Last Values WBC 5.3 K/mm3 (4.5-11.0) 10/02/21 06:26 RBC 2.32 M/mm3 (3.65-5.03) L 10/02/21 06:26 Hgb 9.2 gm/dl (10.1-14.3) L 10/02/21 06:26 Hct 26.6 % (30.3-42.9) L 10/02/21 06:26 MCV 115 fl (79-97) H 10/02/21 06:26 MCH 40 pg (28-32) H 10/02/21 06:26 MCHC 35 % (30-34) H 10/02/21 06:26 RDW 15.4 % (13.2-15.2) H 10/02/21 06:26 Plt Count 155 K/mm3 (140-440) 10/02/21 06:26 Lymph % (Auto) 48.2 % (13.4-35.0) H 10/02/21 06:26 [place] % (Auto) 4.9 % (0.0-7.3) 10/02/21 06:26 Eos % (Auto) 1.1 % (0.0-4.3) 10/02/21 06:26 Baso % (Auto) 0.1 % (0.0-1.8) 10/02/21 06:26 Lymph # (Auto) 2.5 K/mm3 (1.2-5.4) 10/02/21 06:26 [place] # (Auto) 0.3 K/mm3 (0.0-0.8) 10/02/21 06:26 Eos # (Auto) 0.1 K/mm3 (0.0-0.4) 10/02/21 06:26 Baso # (Auto) 0.0 K/mm3 (0.0-0.1) 10/02/21 06:26 Seg Neutrophils % 45.7 % (40.0-70.0) 10/02/21 06:26 Seg Neutrophils # 2.4 K/mm3 (1.8-7.7) 10/02/21 06:26 Sodium 137 mmol/L (137-145) 10/02/21 06:26 Potassium 4.9 mmol/L (3.6-5.0) 10/02/21 06:26 Chloride 104.9 mmol/L (98-107) 10/02/21 06:26 Carbon Dioxide 23 mmol/L (22-30) 10/02/21 06:26 Anion Gap 14 mmol/L 10/02/21 06:26 BUN 18 mg/dL (7-17) H 10/02/21 06:26 Creatinine 1.2 mg/dL (0.6-1.2) 10/02/21 06:26 Estimated GFR 43 ml/min 10/02/21 06:26 BUN/Creatinine Ratio 15 % 10/02/21 06:26 Glucose 82 mg/dL (65-100) 10/02/21 06:26 POC Glucose 80 mg/dL (70-105) 10/01/21 18:25 Hemoglobin A1c 5.5 % (4-6) 10/02/21 07:54 Calcium 10.2 mg/dL (8.4-10.2) 10/02/21 06:26 Total Bilirubin 1.70 mg/dL (0.1-1.2) H 10/01/21 19:02 AST 31 units/L (5-40) 10/01/21 19:02 ALT 14 units/L (7-56) 10/01/21 19:02 Alkaline Phosphatase 78 units/L (35-129) 10/01/21 19:02 Troponin T < 0.010 ng/mL (0.00-0.029) 10/01/21 19:02 Total Protein 6.3 g/dL (6.3-8.2) 10/01/21 19:02 Albumin 4.3 g/dL (3.9-5) 10/01/21 19:02 Albumin/Globulin Ratio 2.2 % 10/01/21 19:02 Triglycerides 58 mg/dL (2-149) 10/02/21 06:26 Cholesterol 134 mg/dL (50-199) 10/02/21 06:26 LDL Cholesterol Direct 72 mg/dL (50-130) 10/02/21 06:26 HDL Cholesterol 57 mg/dL (40-59) 10/02/21 06:26 Cholesterol/HDL Ratio 2.35 % 10/02/21 06:26 Procalcitonin < 0.05 ng/mL (<0.15) 10/02/21 07:54 Microbiology: Microbiology 10/01/21 20:27 Peripheral/Venous Blood Culture - Preliminary NO GROWTH AFTER 24 HOURS 10/01/21 20:27 Peripheral/Venous Blood Culture - Preliminary NO GROWTH AFTER 24 HOURS Vasquez/IV: Voiding Method Toilet Active Medications - Current Medications Current Medications: Generic Name Dose Route Start Last Admin Trade Name Freq PRN Reason Stop Dose Admin Acetaminophen 650 mg 10/01/21 21:53 Acetaminophen 325 Mg Tab PO Q4H PRN Pain MILD(1-3)/Fever >100.5/WALTER Albuterol 2.5 mg 10/01/21 21:53 Albuterol 2.5 Mg/3 Ml Nebu IH Q3HRT PRN Shortness Of Breath Aspirin 81 mg 10/02/21 10:00 10/02/21 11:09 Aspirin Ec 81 Mg Tab PO 81 mg DAILY LEONEL Administration Atorvastatin Calcium 40 mg 10/01/21 22:00 10/02/21 21:23 Atorvastatin 40 Mg Tab PO 40 mg QHS [facility]ONEL Administration Azithromycin 500 mg 10/02/21 10:00 10/02/21 11:09 Azithromycin 250 Mg Tab PO 500 mg QDAY [facility]ONEL Administration Protocol Benzonatate 100 mg 10/01/21 21:57 Benzonatate 100 Mg Cap PO Q8HR PRN Cough Clopidogrel Bisulfate 75 mg 10/02/21 10:00 10/02/21 11:09 Clopidogrel 75 Mg Tab PO 75 mg QDAY [facility]ONEL Administration Famotidine 10 mg 10/01/21 22:00 10/02/21 21:22 Famotidine 20 Mg/2 Ml Inj IV 10 mg BID [facility]ON[facility] Administration Heparin Sodium (Porcine) 5,000 unit 10/01/21 22:00 10/02/21 21:23 Heparin 5,000 Unit/1 Ml Vial SUB-Q 5,000 unit Q12HR [facility]ON[facility] Administration Dextrose/Sodium Chloride 1,000 mls @ 100 mls/hr 10/01/21 22:00 10/03/21 02:14 D5/0.45ns IV 100 mls/hr DIRECT [facility]ON[facility] Administration Ceftriaxone Sodium 2 gm in 100 mls @ 200 mls/hr 10/02/21 10:00 10/02/21 11:10 Rocephin/Ns 2 Gm/100 Ml IV 200 mls/hr Q24H [facility] Administration Protocol Labetalol HCl 10 mg 10/01/21 21:53 Labetalol 20 Mg/4 Ml Inj IV Q5MIN PRN to maintain SBP < 180 Levothyroxine Sodium 25 mcg 10/02/21 06:00 10/02/21 10:41 Levothyroxine 25 Mcg Tab PO Not Given QAM@0600 [facility] Lisinopril 40 mg 10/02/21 10:00 10/02/21 11:49 Lisinopril 40 Mg Tab PO 40 mg QDAY [facility]ON[facility] Administration Morphine Sulfate 2 mg 10/01/21 21:53 Morphine 2 Mg/1 Ml Inj IV Q4H PRN Pain, Moderate (4-6) Morphine Sulfate 4 mg 10/01/21 21:53 Morphine 4 Mg/1 Ml Inj IV Q4H PRN Pain , Severe (7-10) Ondansetron HCl 4 mg 10/01/21 21:53 Ondansetron 4 Mg/2 Ml Inj IV Q8H PRN Nausea And Vomiting Sodium Chloride 10 ml 10/01/21 22:00 10/02/21 21:23 Sodium Chloride 0.9% 10 Ml Flush Syringe IV 10 ml BID [facility]ONEL Administration Sodium Chloride 10 ml 10/01/21 21:53 Sodium Chloride 0.9% 10 Ml Flush Syringe IV PRN PRN LINE FLUSH
[2021-10-03] MEDS: LEVOTHYROXINE 25 MCG TAB PO SCH (05:40)
--- NOTE | 2021-10-03 08:15 | Magnetic Resonance Report ---
MR brain wo con INDICATION / CLINICAL INFORMATION: 81 years Female; stroke. TECHNIQUE: Multiplanar, multisequence MR images of the brain were obtained. COMPARISON: CT-10/01/2021 FINDINGS: BRAIN / INTRACRANIAL CONTENTS: No acute hemorrhage, mass effect, midline shift, hydrocephalus, or acu te, large territorial infarct. Mild, diffuse cerebral atrophy suggested. Mild, diffuse white matter disease noted. CRANIOCERVICAL JUNCTION: No significant abnormality. VASCULAR FLOW-VOIDS: No significant abnormality. Tortuous vertebrobasilar system seen-would question history of chronic hypertension. ORBITS: No significant abnormality of visualized orbits. SINUSES / MASTOIDS: Mild mucosal thickening in the ethmoids. ADDITIONAL FINDINGS: None. IMPRESSION: 1. No focal mass, hemorrhage, hydrocephalus, or acute ischemia. Signer Name: Raymon Rosas MD, III Signed: 10/03/2021 8:10 AM Workstation Name: [id number]
--- NOTE | 2021-10-03 08:21 | Magnetic Resonance Report ---
MR MRA/MRV head wo con INDICATION / CLINICAL INFORMATION: 81 years Female; stroke. TECHNIQUE: 3-D time of flight. NASCET type criteria used to evaluate stenoses. COMPARISON: None available. FINDINGS: INTERNAL CAROTID ARTERIES: No significant narrowing appreciated. VERTEBROBASILAR SYSTEM: No significant narrowing appreciated. DISTAL BRANCHES: Distal branches of the anterior, middle, and posterior cerebral arteries are fairly symmetric in appearance and number. Scattered areas of focal, mild narrowing seen in the peripheral b ranches. ANEURYSM: None identified. IMPRESSION: No significant abnormality on this MRA of the brain. Signer Name: Raymon Rosas MD, III Signed: 10/03/2021 8:17 AM Workstation Name: [email or web address]
[2021-10-03] MEDS ORDERED: FAMOTIDINE 10 MG TAB PO SCH (10:00)
[2021-10-03] MEDS: HEPARIN 5,000 UNIT/1 ML VIAL SUB-Q SCH (11:59)
[2021-10-03] MEDS: CLOPIDOGREL 75 MG TAB PO SCH (11:59)
[2021-10-03] MEDS: ASPIRIN EC 81 MG TAB PO SCH (11:59)
[2021-10-03] MEDS: LISINOPRIL 40 MG TAB PO SCH (12:00)
[2021-10-03 12:01] VITALS: BP 127/64
--- NOTE | 2021-10-03 13:10 | Discharge Summary ---
Providers - Providers Date of Admission: 10/01/21 21:53 Date of discharge: 10/03/21 Attending physician: KAREN MUNROE MD 10/01/21 21:53 Occupational Therapy Evaluate and Treat [CONS] Routine Comment: Reason For Exam: Neuro deficits Physical Therapy Evaluation and Treat [CONS] Routine Comment: Reason For Exam: Neuro deficits 10/02/21 07:44 Consult to Physician [CONS] Routine Comment: Consulting Provider: DOLLY OSBORNE Physician Instructions: Reason For Exam: CVA workup Primary care physician: VIRGINIA RYAN Hospitalization Reason for admission: CVA r/o Condition: Stable Hospital course: 81-year-old female with history of hypertension, arthritis, COPD and chronic respiratory failure who presented with right upper extremity tingling and numbness. Initial CT scan showed no acute abnormality of the head. CT of the head and neck showed no significant occlusion or stenosis. tPA was not given due to patient missing the window. MRI of the brain showed no focal mass, hemorrhage, or acute ischemia. MRA of the head showed no significant abnormality. Echocardiogram showed mild diastolic dysfunction and PFO. The aforementioned findings were discussed with the patient and it was decided that she will follow-up with her assistant counsel outpatient. Patient also reported urinary retention upon admission. Vasquez catheter was removed and patient was able to void prior to discharge. Disposition: 30 STILL A PATIENT Final Discharge Diagnosis (Prints w/discharge instructions): Probable TIA. Bilateral pneumonia ruled out. Chronic hypoxic respiratory failure. Hypertension. Hypothyroidism. Urinary retention, resolved Time spent for discharge: 35 minutes Core Measure Documentation - Palliative Care Palliative Care/ Comfort Measures: Not Applicable - Core Measures Any of the following diagnoses?: stroke - Stroke Discharge Requirements Statin for LDL = or >70 mg/dl on DC: Yes Anticoag for atrial fib/atrial flutter: Not Applicable Antithrombotic for ischemic stroke: Yes Exam - Physical Exam Narrative exam: GENERAL: Thin elderly woman. In no acute distress. HEENT: Nasal cannula in place at 3 L/min. NECK: Supple. CHEST/LUNGS: CTAB on supplemental O2. HEART/CARDIOVASCULAR: RRR. No murmur, rubs or gallops appreciated. ABDOMEN: +BS. NT/ND. SKIN: Right upper extremity ecchymoses. NEURO: No focal motor deficit. Follows all commands. MUSCULOSKELETAL: No joint effusion EXTREMITIES: No cyanosis, clubbing or edema. PSYCH: Cooperative. - Constitutional Vitals: Temp Pulse Resp BP Pulse Ox 98.1 F 73 18 119/61 98 10/03/21 03:42 10/03/21 03:42 10/03/21 03:42 10/03/21 03:42 10/03/21 08:01 Plan Care Plan Goals: Please be sure to follow-up with your primary care provider. It is easy to locate one when relocating by contacting your insurance provider to find local physicians who accept your insurance. Please take all medications as prescribed. Our occupational and physical therapist have recommended that you continue services through home health. We will set this up for you. The CT scans and MRIs of your head and neck were negative for acute stroke findings. The ultrasound of your heart did show that you have a small opening called a patent foramen ovale. We recommend that you follow-up with Cardiology for an event monitor and to also evaluate this defect. Follow up with: VIRGINIA RYAN MD [Primary Care Provider] - 3-5 Days Prescriptions: AtorvaSTATin [Lipitor] 40 mg PO QHS 30 Days #30 tab Aspirin [Adult Aspirin] 81 mg PO DAILY 30 Days #30 tab Clopidogrel [Plavix] 75 mg PO QDAY 30 Days #30 tablet Levothyroxine [Synthroid] 25 mcg PO QAM 30 Days #30 tab lisinopriL [Zestril TAB] 40 mg PO QDAY 30 Days #30 tab
--- NOTE | 2021-10-04 10:25 | Electrocardiograph Report ---
[facility] Test Date: 2021-10-01 Test Time: 19:43:13 Pat Name: GALINA GARCIA Department: Room: A482 1 Gender: [employer]: GARETH : 1940 Requested By: HERI VICENTE Order Number: [id number] Reading MD: Jonatan Lr Measurements Intervals [place] Rate: 78 P: 118 TX: 45 QRS: -18 QRSD: 105 T: 20 QT: 387 QTc: 442 Interpretive Statements Sinus rhythm,baseline artifacts noted. No previous ECG available for comparison Electronically Signed On 10-04-2021 10:25:05 EDT by Jonatan Lr
== END 2021-10-03 21:33 | disposition home health service (06) | DRG 69 ==
LOC: ED 18:10 → 4A 21:53
PROVIDERS: ADMIT Hospitalist; ATTEND Student in an Organized Health Care Education/Training Program
DX: G45.9 Transient cerebral ischemic attack, unspecified (principal); J96.11 Chronic respiratory failure with hypoxia; I10 Essential (primary) hypertension; E03.9 Hypothyroidism, unspecified; M19.90 Unspecified osteoarthritis, unspecified site; J44.9 Chronic obstructive pulmonary disease, unspecified; R33.9 Retention of urine, unspecified; Z87.891 Personal history of nicotine dependence; Z79.82 Long term (current) use of aspirin; Z79.899 Other long term (current) drug therapy; Z82.49 Family history of ischemic heart disease and other diseases of the circulatory system; Z88.8 Allergy status to other drugs, medicaments and biological substances; Z88.6 Allergy status to analgesic agent
CPT/HCPCS: 36415; 70450; 70496; 70498; 70544; 70551; 71045; 80048; 80053; 80061; 82962; 83036; 84145; 84484; 85025; 87040; 93005; 93306; 94640; 94760; G0378; J3490; J7070; C8929; J0456; J0696; J1644; Q9967